=== PATIENT | male | born 1975 | race Two or more races ===

== ENCOUNTER 2016-08-21 01:04 | Emergency (ER) | payer SELFPAY ==
[~2016-08-21] VITALS: Ht 170.2 cm; Wt 78.9 kg
[2016-08-21 01:47] LABS: Basophils # (auto) 0 uL; Basophils % (auto) 0.3 % (0.0-2.0); Eosinophils # (auto) 0.1 uL; Eosinophils % (auto) 1.6 % (0.0-7.0); Hematocrit 44.7 % (41.0-53.0); Hemoglobin 15.4 g/dL (13.5-17.5); Lymphocytes # (auto) 1.8 uL; Lymphocytes % (auto) 32.1 % (10.0-50.0); Mean Corpuscular Hemoglobin 29.8 pg (28.0-32.0); Mean Corpuscular Hgb Conc. 34.4 g/dL (32.0-36.0); Mean Corpuscular Volume 86.5 fL (80.0-100.0); Mean Platelet Volume 8.5 fL (7.4-10.4); Monocytes # (auto) 0.4 uL; Neutrophils # (auto) 3.4 uL; Platelet Count (auto) 257 10^3/uL (140-450); Red Cell Distribution Width 12.3 % (11.6-16.0); White Blood Cell 5.8 10^3/uL (4.4-10.8)
[2016-08-21 02:04] LABS: Albumin 3.7 g/dL (3.4-5.0); Anion Gap 11 (5-15); Calcium 8.4 mg/dL (8.5-10.1); Carbon Dioxide 26 mmol/L (21-32); Chloride 106 mmol/L (98-107); Glucose 116 mg/dL (74-106); Potassium 3.8 mmol/L (3.5-5.1); Sodium 143 mmol/L (136-145)
[2016-08-21 02:07] LABS: Aspartate Aminotransferase 17 U/L (15-37); BUN/Creatinine Ratio 22.2; Bilirubin, Total 0.4 mg/dL (0.2-1.0); Blood Urea Nitrogen 22 mg/dL (7-18); GFR African American 108 mL/min; GFR Non-African American 89 mL/min; Total Protein 7.6 g/dL (6.4-8.2)
[2016-08-21 02:11] LABS: Alkaline Phosphatase 61 U/L (45-117)
[2016-08-21] MEDS ORDERED: SODIUM CHLORIDE 0.9% 1,000 ML IV ONE (02:30)
[2016-08-21] MEDS ORDERED: LORazepam 2MG/ML-1ML VIAL IV ONE (02:30)
[2016-08-21 05:05] VITALS: BP 99/59
== END 2016-08-21 05:14 | disposition home or self-care (01) ==
LOC: ER 01:04
DX: F41.9 Anxiety disorder, unspecified (principal); F17.210 Nicotine dependence, cigarettes, uncomplicated; M25.511 Pain in right shoulder; M54.2 Cervicalgia
CPT/HCPCS: 36415; 80053; 84484; 85025; 93005; 96361; 96374; 99285; J2060; J7030